=== PATIENT | female | born 1955 | race Caucasian/White ===

== ENCOUNTER → 2022-01-26 | Outpatient (CLI) | payer OTHER ==
--- NOTE | 2022-01-26 11:06 | KCIC ---
RS Compliance Statement: One or more of the following individualized dose reduction techniques were utilized for this examinat ion: 1. Automated exposure control 2. Adjustment of the mA and/or kV according to patient size 3. Use of iterative reconstruction technique Coronary calcium score CT chest without contrast History: Hyperlipidemia, hypertension. History of smoking. Diabetes. Technique: With retrospective electrocardiogram gating axial reconstructed noncontrast images of the chest at the level of the coronary arteries was performed. Images were post processed on workstation and calcium score calculated using the modified Agatston Janowitz protocol. Findings: Total coronary calcium score is 605.2. This is an extensive plaque burden and high cardiova scular disease risk. This is based on the calcium score of 0 of the left main coronary artery, score of 214.2 of the left anterior descending artery, score of 391.1 of the left circumflex artery and sc ore of 0 of the right coronary artery. Noncoronary findings demonstrate mild ectasia of the ascending thoracic aorta, diameter 3.6 cm. The r ight coronary artery is not well seen. It appears to be diminutive in caliber. There is left heart do minance. Cardiac size is normal, no pericardial effusion. Visualized upper abdomen is unremarkable. T here is no pleural abnormality. There is a 9 mm nodular opacity in the right lung probably along the minor fissure, image 11. There is minimal scarring or atelectasis in the posterior right lower lobe. Visualized lungs otherwise clear. IMPRESSION: 1. Patient's total calcium score is 605. 2. There is a 9 mm nodule in the right lung probably along the minor fissure, may be a perifissural lymph node. Recommend CT chest follow-up in 3-6 months. 3. Left heart dominance. Electronically signed by: John Kwan MD (01/26/2022 11:04 AM) [id number]
== END ==
LOC: KCIC CT 10:05
PROVIDERS: ATTEND Family Medicine
DX: I10 Essential (primary) hypertension (principal); R91.1 Solitary pulmonary nodule; I77.810 Thoracic aortic ectasia
CPT/HCPCS: 75571